=== PATIENT | male | born 1955 | race Caucasian/White ===

== ENCOUNTER 2019-06-30 04:02 | Inpatient (IN) | payer BC ==
[2019-06-30] MEDS ORDERED: SODIUM CHLORIDE 0.9% 1,000 ML IV STA (04:40)
[2019-06-30] MEDS ORDERED: ATROPINE SULFATE 0.1 MG/ML 10ML SYRINGE IV STA (04:40)
--- NOTE | 2019-06-30 04:43 | ED ---
Dizziness HPI - General Stated Complaint: Chest Pain Source: RN notes reviewed, old records reviewed - History of Present Illness Initial Comments: This is a 64-year-old male who presents for evaluation of some chest pain today, feels lightheaded and dizzy special with movement notices heart rate to be severely low at home when he took his blood pressure rate patient has history of atrial fibrillation no recent medication changes. No travel history or sick contacts denying any fevers no drug or alcohol abuse. Patient does relate story of brother who is fraternal twin who also had a recent pacemaker placed secondary to low heart rate. Patient feels near syncopal with movement of feels fine sitting still in his bed MD Complaint: dizziness -: minutes(s) Timing: gradual onset, awoke with symptoms Description: lightheadedness History of Same: No History of Trauma: No Severity: severe Improves With: remaining still Worsens With: nothing Associated Symptoms: chest pain, malaise, syncope (near), weakness - Related Data Allergies Allergy/AdvReac Type Severity Reaction Status Date / Time hydralazine Allergy Rash/Hives Verified 06/30/19 04:46 Review of Systems ROS Statement: Those systems with pertinent positive or pertinent negative responses have been documented in the HPI. ROS Other: All systems not noted in ROS Statement are negative. General Exam General appearance: alert, in no apparent distress, anxious Head exam: Present: atraumatic, normocephalic, normal inspection Eye exam: Present: normal appearance, PERRL, EOMI. Absent: scleral icterus, conjunctival injection, periorbital swelling ENT exam: Present: normal exam, mucous membranes moist Neck exam: Present: normal inspection. Absent: tenderness, meningismus, lymphadenopathy Respiratory exam: Present: normal lung sounds bilaterally. Absent: respiratory distress, wheezes, rales, rhonchi, stridor Cardiovascular Exam: Present: bradycardia (3rd degree heartBlock), normal heart sounds. Absent: systolic murmur, diastolic murmur, rubs, gallop, clicks GI/Abdominal exam: Present: soft, normal bowel sounds. Absent: distended, tenderness, guarding, rebound, rigid Extremities exam: Present: normal inspection, full ROM, normal capillary refill. Absent: tenderness, pedal edema, joint swelling, calf tenderness Back exam: Present: normal inspection Neurological exam: Present: alert, oriented X3, CN II-XII intact Psychiatric exam: Present: normal affect, normal mood Skin exam: Present: warm, dry, intact, normal color. Absent: rash Course Vital Signs 06/30/19 06/30/19 06/30/19 04:10 04:47 05:41 Temperature 98 F Pulse Rate 32 L 27 L Pulse Rate [ 27 L Sitting Apical] Respiratory 22 16 Rate Blood Pressure 162/65 139/55 O2 Sat by Pulse 99 98 Oximetry - Reevaluation(s) Reevaluation #1: 06/30/19 05:43 Medical records reviewed Reevaluation #2: 06/30/19 05:43 Patient has no significant complaints currently feels occasionally lightheaded he did respond atropine transiently - Consultations Consultation #1: Spoke with Dr. Ley regarding patient's heart block heart rate and blood pressure. Patient will place an ICU Consultation #2: Focused Dr. Anglin is okay for admission spoke with Dr. Casiano who is aware of ICU admission EKG Findings - EKG Comments: EKG Findings:: EKG shows 3rd degree heart Block Medical Decision Making - Medical Decision Making 64 male to the ER for evaluation patient of lightheadedness and dizziness patient found be in third-degree heart block, bradycardic in the 20s blood pressure is normal and maintaining, lab values otherwise negative echo was ordered patient will be admitted for cardiac evaluation and treatment, - Lab Data Result diagrams: 06/30/19 04:35 06/30/19 04:35 Lab Results 06/30/19 06/30/19 06/30/19 Range/Units 04:35 04:35 04:35 WBC 5.1 (3.8-10.6) k/uL RBC 4.44 (4.30-5.90) m/uL Hgb 14.4 (13.0-17.5) gm/dL Hct 40.7 (39.0-53.0) % MCV 91.6 (80.0-100.0) fL MCH 32.4 (25.0-35.0) pg MCHC 35.3 (31.0-37.0) g/dL RDW 13.5 (11.5-15.5) % Plt Count 191 (150-450) k/uL Neutrophils % 69 % Lymphocytes % 19 % Monocytes % 6 % Eosinophils % 3 % Basophils % 0 % Neutrophils # 3.5 (1.3-7.7) k/uL Lymphocytes # 1.0 (1.0-4.8) k/uL Monocytes # 0.3 (0-1.0) k/uL Eosinophils # 0.2 (0-0.7) k/uL Basophils # 0.0 (0-0.2) k/uL Sodium 136 L (137-145) mmol/L Potassium 4.6 (3.5-5.1) mmol/L Chloride 105 (98-107) mmol/L Carbon Dioxide 19 L (22-30) mmol/L Anion Gap 12 mmol/L BUN 27 H (9-20) mg/dL Creatinine 0.94 (0.66-1.25) mg/dL Est GFR (CKD-EPI)AfAm >90 (>60 ml/min/1.73 sqM) Est GFR (CKD-EPI)NonAf 86 (>60 ml/min/1.73 sqM) Glucose 188 H (74-99) mg/dL Plasma Lactic Acid Francisco 2.8 H* (0.7-2.0) mmol/L Calcium 9.9 (8.4-10.2) mg/dL Phosphorus 4.2 (2.5-4.5) mg/dL Magnesium 1.7 (1.6-2.3) mg/dL Total Bilirubin 0.6 (0.2-1.3) mg/dL AST 54 (17-59) U/L ALT 48 (4-49) U/L Alkaline Phosphatase 71 (38-126) U/L Troponin I (0.000-0.034) ng/mL NT-Pro-B Natriuret Pep pg/mL Total Protein 7.5 (6.3-8.2) g/dL Albumin 4.4 (3.5-5.0) g/dL TSH 2.950 (0.465-4.680) mIU/L 06/30/19 06/30/19 Range/Units 04:35 04:35 WBC (3.8-10.6) k/uL RBC (4.30-5.90) m/uL Hgb (13.0-17.5) gm/dL Hct (39.0-53.0) % MCV (80.0-100.0) fL MCH (25.0-35.0) pg MCHC (31.0-37.0) g/dL RDW (11.5-15.5) % Plt Count (150-450) k/uL Neutrophils % % Lymphocytes % % Monocytes % % Eosinophils % % Basophils % % Neutrophils # (1.3-7.7) k/uL Lymphocytes # (1.0-4.8) k/uL Monocytes # (0-1.0) k/uL Eosinophils # (0-0.7) k/uL Basophils # (0-0.2) k/uL Sodium (137-145) mmol/L Potassium (3.5-5.1) mmol/L Chloride (98-107) mmol/L Carbon Dioxide (22-30) mmol/L Anion Gap mmol/L BUN (9-20) mg/dL Creatinine (0.66-1.25) mg/dL Est GFR (CKD-EPI)AfAm (>60 ml/min/1.73 sqM) Est GFR (CKD-EPI)NonAf (>60 ml/min/1.73 sqM) Glucose (74-99) mg/dL Plasma Lactic Acid Francisco (0.7-2.0) mmol/L Calcium (8.4-10.2) mg/dL Phosphorus (2.5-4.5) mg/dL Magnesium (1.6-2.3) mg/dL Total Bilirubin (0.2-1.3) mg/dL AST (17-59) U/L ALT (4-49) U/L Alkaline Phosphatase (38-126) U/L Troponin I <0.012 (0.000-0.034) ng/mL NT-Pro-B Natriuret Pep 111 pg/mL Total Protein (6.3-8.2) g/dL Albumin (3.5-5.0) g/dL TSH (0.465-4.680) mIU/L Critical Care Time Critical Care Time: Yes Total Critical Care Time: 31 Disposition Clinical Impression: Atypical chest pain, Bradycardia, Third degree heart block Disposition: ADMITTED IP TO THIS HOSP Condition: Serious Is patient prescribed a controlled substance at d/c from ED?: No Referrals: [facility] [Primary Care Provider] - 1-2 days
[2019-06-30 05:01] LABS: Basophils % (A) 0 %; Eosinophils # (A) 0.2 k/uL (0-0.7); Eosinophils % (A) 3 %; HCT 40.7 % (39.0-53.0); HGB 14.4 gm/dL (13.0-17.5); Lymphocytes % (A) 19 %; MCH 32.4 pg (25.0-35.0); MCHC 35.3 g/dL (31.0-37.0); MCV 91.6 fL (80.0-100.0); Mean Platelet Volume 8.9; Monocytes # (A) 0.3 k/uL (0-1.0); Monocytes % (A) 6 %; Neutrophils # (A) 3.5 k/uL (1.3-7.7); Neutrophils % (A) 69 %; Platelet Count 191 k/uL (150-450); RBC 4.44 m/uL (4.30-5.90); RDW 13.5 % (11.5-15.5); WBC 5.1 k/uL (3.8-10.6)
[2019-06-30 05:05] LABS: ALT 48 U/L (4-49); AST 54 U/L (17-59); African American GFR (CKD) >90 (>60 ml/min/1.73 sqM); Albumin 4.4 g/dL (3.5-5.0); Alkaline Phosphatase 71 U/L (38-126); Anion Gap 12 mmol/L; Blood Urea Nitrogen 27 mg/dL (9-20); Calcium 9.9 mg/dL (8.4-10.2); Carbon Dioxide 19 mmol/L (22-30); Chloride 105 mmol/L (98-107); Glucose 188 mg/dL (74-99); Magnesium 1.7 mg/dL (1.6-2.3); Non-African American GFR(CKD) 86 (>60 ml/min/1.73 sqM); Phosphorus 4.2 mg/dL (2.5-4.5); Potassium 4.6 mmol/L (3.5-5.1); Sodium 136 mmol/L (137-145); Total Bilirubin 0.6 mg/dL (0.2-1.3); Total Protein 7.5 g/dL (6.3-8.2)
[2019-06-30] MEDS ORDERED: NITROGLYCERIN SL TABS 0.4 MG TAB SUBLINGUAL PRN (05:10)
[2019-06-30] MEDS ORDERED: ASPIRIN 81 MG PO STA (05:10)
[2019-06-30 05:35] LABS: INR 1.1 (<1.2); Partial Thromboplastin Time 41.9 sec (22.0-30.0); Prothrombin Time 11.6 sec (9.0-12.0)
--- NOTE | 2019-06-30 06:25 | XR ---
EXAM: XR Chest, 1 View CLINICAL HISTORY: ITS.REASON XR Reason: sob TECHNIQUE: Frontal view of the chest. COMPARISON: No relevant prior studies available. FINDINGS: Lungs: Left basilar atelectasis. Left lung granulomas. Pleural space: Unremarkable. No pneumothorax. Heart: Unremarkable. No cardiomegaly. Mediastinum: Unremarkable. Bones/joints: Unremarkable. IMPRESSION: Left basilar atelectasis. Left lung granulomas.
[2019-06-30] MEDS ORDERED: IV FLUID CONTINUATION 1,000 ML IV ONE ×2 (07:00→09:00)
[2019-06-30] MEDS ORDERED: MIDAZOLAM 2 MG/2 ML VIAL IV ONE ×2 (07:01→09:53)
[2019-06-30] MEDS ORDERED: fentaNYL (PF) 50 MCG/ML 2 ML AMP IV ONE ×2 (07:01→09:53)
[2019-06-30] MEDS ORDERED: LIDOCAINE 1% INJ 10MG/ML (20 ML MDV) SQ ONE ×3 (07:08→09:53)
[2019-06-30] MEDS ORDERED: ceFAZolin 1,000 MG in SODIUM CHLORIDE 0.9% IRRIGATIO 250 ML IRRIGATION ONE (07:25)
[2019-06-30] MEDS ORDERED: SODIUM CHLORIDE 0.9% 500 ML 500 ML IV ONE (07:26)
[2019-06-30] MEDS ORDERED: SODIUM CHLORIDE 0.9% 1,000 ML IV SCH (07:30)
[2019-06-30] MEDS ORDERED: SODIUM CHLORIDE 0.9% 250 ML IV ONE (07:40)
[2019-06-30] MEDS ORDERED: IOPAMIDOL-250 50ML BTL IV ONE (09:10)
[2019-06-30] MEDS ORDERED: ALPRAZolam 0.5 MG TAB PO PRN (10:06)
[2019-06-30] MEDS ORDERED: ENALAPRILAT 1.25 MG/ML 1 ML VIAL IV ONE (10:52)
[2019-06-30] MEDS ORDERED: ACETAMINOPHEN TAB 325 MG TAB PO PRN (11:08)
--- NOTE | 2019-06-30 11:15 | P.PCN ---
Date of Procedure: 06/30/19 Preoperative Diagnosis: Complete heart block Postoperative Diagnosis: The same Procedure(s) Performed: Temporary pacemaker insertion Description of Procedure: This 64-year-old gentleman was admitted to the emergency room with complete heart block with severe bradycardia and symptoms of dizziness. Patient EKG showed evidence of complete heart block and left bundle-branch block. Patient is advised to have temporary pacemaker. Procedure: Patient was brought to the lab in a fasting state. He was prepped and draped in the usual fashion. The right groin is infiltrated with lidocaine. Right femoral vein was entered using Seldinger technique and a 6-Irish sheath was left in place. A temporary pacemaker wire was advanced under fluoroscopy and was placed near the right ventricular apical region. Satisfactory thresholds were obtained. The pacemaker is set at an output of 3 and heart rate of 50. Patient tolerated the procedure well. Final impression: #1. Successful implantation of temporary pacemaker under fluoroscopy. Plan: We will proceed with permanent pacemaker implantation within 24 hours
--- NOTE | 2019-06-30 11:21 | P.PCN ---
Date of Procedure: 06/30/19 Preoperative Diagnosis: Complete heart block Postoperative Diagnosis: Successful implantation of dual-chamber pacemaker Procedure(s) Performed: Permanent pacemaker implantation, dual-chamber, axillary venography Description of Procedure: HISTORY: This is a 64-year-old gentleman with history of hypertension, insulin- dependent diabetes mellitus and also persistent atrial fibrillation, who was admitted to the hospital with dizziness and evidence of complete A-V block with underlying left bundle-branch block pattern. Patient had a temporary pacemaker already. He is advised to have permanent pacemaker insertion. CONSENT:I have discussed the risks, benefits and alternative therapies for the above-mentioned procedure and for both sedation/analgesia as well as necessary blood product administration, if indicated, as they pertain to this patient. The patient has indicated understanding and acceptance of the risks and procedures discussed. PROCEDURE: Patient was brought to the lab in a fasting state. Patient was prepped and draped in the usual fashion. Patient was given IV sedation with fentanyl and Versed. The skin below the left clavicle was infiltrated with lidocaine. An incision was made parallel to deltopectoral groove was deepened until the pectoral fascia was exposed. A pocket was created by blunt dissection and cautery. Axillary venography was performed to delineate the course of the axillary vein. 2 sticks were performed into extrathoracic portion of the axillary vein and 2 sheaths were advanced over the guidewires and left in subclavian vein. Conscious Sedation: Versed 0.5mg Fentanyl 25 g Duration 68minutes LEADS: ATRIAL: This is manufactured by [employer]. Model number is 5076-52. The serial number is [id number] VENTRICULAR: This is manufactured by [employer]. Model number is 5076-58. The serial number is [id number] The ventricular lead is maneuvered l with help of a straight and curved stylets into the left ventricle apical region. Satisfactory position was obtained and threshold measurements were made. The atrial lead was then maneuvered into the right atrial appendage. And thresholds were obtained. THRESHOLDS: ATRIUM: The minimal pacing threshold is 0.75 V at a pulse width of 0.4 V, impedance of 513. The P-wave is 1.9 VENTRICLE: The minimum patient threshold is less than 1 at pulse width of 0.4 with impedance of 969. R-wave: Could not be measured because of significant bradycardia The leads and pulse generator remained in the pocket after it was washed with antibiotics. Pocket was closed in the usual fashion. The fascia was closed with 2-0 Prolene ,the subcutaneous tissue was closed with 3-0 Prolene and the skin was closed with 4-0 Prolene. PROGRAMMING: MODE: DDDR RATE: 60 to 130 OUTPUT: Atrium : 3.5 Ventricle: 3.5 FINAL IMPRESSION:. #1 axillary venography #2. Insertion of permanent pacemaker COMPLICATIONS:. None PLAN:. Patient will be monitored on the telemetry unit. Prophylactic antibiotics to be continued. Chest x-ray in the morning
--- NOTE | 2019-06-30 11:41 | ECHOF ---
Referral Reason:cindy MEASUREMENTS -------- HEIGHT: 177.8 cm WEIGHT: 108.9 kg BP: 170/91 RVIDd: 3.9 cm (< 3.3) IVSd: 1.7 cm (0.6 - 1.1) LVIDd: 4.3 cm (3.9 - 5.3) LVPWd: 1.6 cm (0.6 - 1.1) IVSs: 1.7 cm LVIDs: 3.1 cm LVPWs: 2.1 cm LA Diam: 3.9 cm (2.7 - 3.8) Ao Diam: 2.9 cm (2.0 - 3.7) AV Cusp: 2.1 cm (1.5 - 2.6) MV EXCURSION: 18.069 mm (> 18.000) MV EF SLOPE: 58 mm/s (70 - 150) EPSS: 0.7 cm MV E Andrew: 0.87 m/s MV DecT: 273 ms MV A Andrew: 0.75 m/s MV E/A Ratio: 1.17 RAP: 5.00 mmHg RVSP: 30.23 mmHg FINDINGS -------- Resting bradycardia (HR<60bpm). This was a technically adequate study. The left ventricular size is normal. There is moderate concentric left ventricular hypertrophy. O verall left ventricular systolic function is low-normal with, an EF between 50 - 55 %. The right ventricle is moderately enlarged. Normal LA size by volume 22+/-6 ml/m2. The right atrium is normal in size. Interatrial and interventricular septum intact. There is mild aortic valve sclerosis. Trace to mild aortic regurgitation. The mitral valve leaflets are mildly thickened. Mild mitral annular calcification present. Mild tricuspid regurgitation present. Right ventricular systolic pressure is normal at < 35 mmHg. Trace/mild (physiologic) pulmonic regurgitation. The aortic root size is normal. Normal inferior vena cava with normal inspiratory collapse consistent with estimated right atrial pre ssure of 5 mmHg. There is no pericardial effusion. CONCLUSIONS -------- 1. Resting bradycardia (HR<60bpm). 2. This was a technically adequate study. 3. The left ventricular size is normal. 4. There is moderate concentric left ventricular hypertrophy. 5. Overall left ventricular systolic function is low-normal with, an EF between 50 - 55 %. 6. The right ventricle is moderately enlarged. 7. Normal LA size by volume 22+/-6 ml/m2. 8. The right atrium is normal in size. 9. Interatrial and interventricular septum intact. 10. There is mild aortic valve sclerosis. 11. Trace to mild aortic regurgitation. 12. The mitral valve leaflets are mildly thickened. 13. Mild mitral annular calcification present. 14. Mild tricuspid regurgitation present. 15. Right ventricular systolic pressure is normal at < 35 mmHg. 16. Trace/mild (physiologic) pulmonic regurgitation. 17. The aortic root size is normal. 18. Normal inferior vena cava with normal inspiratory collapse consistent with estimated right atrial pressure of 5 mmHg. 19. There is no pericardial effusion. APPLICATION DESIGN ENGINEER: Roseann Braden RDCS
--- NOTE | 2019-06-30 12:50 | P.HPIM ---
History of Present Illness 64-year-old pleasant male came in with complaints of severe dizziness found to be in third-degree heart block. Patient denied any fever chills nausea vomiting abdominal pain dysuria. Patient underwent temporary pacemaker placement followed by a permanent pacemaker now. Patient has history of atrial fibrillation on Xeralto and patient is not on any rate control medications at this time. Patient felt like his gone up lose consciousness denied any significant chest pain Review of Systems REVIEW OF SYSTEMS: CONSTITUTIONAL: No fever, no malaise, no fatigue. HEENT: No recent visual problems or hearing problems. Denied any sore throat. CARDIOVASCULAR: As mentioned in HPI PULMONARY: No shortness of breath, no cough, no hemoptysis. GASTROINTESTINAL: No diarrhea, no nausea, no vomiting, no abdominal pain. NEUROLOGICAL: No headaches, no weakness, no numbness. HEMATOLOGICAL: Denies any bleeding or petechiae. GENITOURINARY: Denies any burning micturition, frequency, or urgency. MUSCULOSKELETAL/RHEUMATOLOGICAL: Denies any joint pain, swelling, or any muscle pain. ENDOCRINE: Denies any polyuria or polydipsia. The rest of the 14-point review of systems is negative. Past Medical History Past Medical History: Atrial Fibrillation, Diabetes Mellitus, Hypertension Additional Past Medical History / Comment(s): 3rd degree heart block. History of Any Multi-Drug Resistant Organisms: None Reported Past Surgical History: Adenoidectomy, Hernia Repair, Pacemaker, Tonsillectomy Past Anesthesia/Blood Transfusion Reactions: No Reported Reaction Type of Cardiac Device: Permanent Pacemaker Device Placement Date:: 06/30/2019 Past Psychological History: No Psychological Hx Reported Smoking Status: Former smoker Past Alcohol Use History: Daily Past Drug Use History: None Reported Medications and Allergies Home Medications Medication Instructions Recorded Confirmed Type ALPRAZolam [Xanax] 1 mg PO TID PRN 06/30/19 06/30/19 History Atorvastatin [Lipitor] 20 mg PO HS 06/30/19 06/30/19 History Fluticasone Nasal [place] [Flonase 1 spray EA NOSTRIL BID 06/30/19 06/30/19 History Nasal [place]] Insulin Aspart [NovoLOG Flexpen] 4 units SQ QID 06/30/19 06/30/19 History Insulin Glargine [Lantus] 50 units SQ DAILY 06/30/19 06/30/19 History Losartan Potassium [Cozaar] 100 mg PO DAILY 06/30/19 06/30/19 History Omeprazole [PriLOSEC] 20 mg PO AC-[id number] 06/30/19 06/30/19 History Rivaroxaban [Xarelto] 20 mg PO DAILY 06/30/19 06/30/19 History Spironolactone [Aldactone] 25 mg PO DAILY 06/30/19 06/30/19 History amLODIPine [Norvasc] 10 mg PO DAILY 06/30/19 06/30/19 History metFORMIN HCL 1,000 mg PO BID 06/30/19 06/30/19 History Allergies Allergy/AdvReac Type Severity Reaction Status Date / Time hydralazine Allergy Rash/Hives Verified 06/30/19 04:46 Physical Exam Vitals: Vital Signs Temp Pulse Pulse Pulse Resp BP BP 06/30/19 12:25 70 18 136/66 06/30/19 12:10 60 16 159/69 06/30/19 11:55 60 16 145/75 06/30/19 11:40 98.6 F 60 16 141/73 06/30/19 08:20 50 L 16 151/72 06/30/19 07:37 50 L 16 166/78 06/30/19 06:00 98.0 F 28 L 16 170/91 06/30/19 05:41 27 L 16 139/55 06/30/19 04:47 27 L 06/30/19 04:10 98 F 32 L 22 162/65 Pulse Ox 06/30/19 12:25 95 06/30/19 12:10 98 06/30/19 11:55 96 06/30/19 11:40 97 06/30/19 08:20 97 06/30/19 07:37 98 06/30/19 06:00 99 06/30/19 05:41 98 06/30/19 04:47 06/30/19 04:10 99 Intake and Output 06/29/19 06/30/19 06/30/19 22:59 06:59 14:59 Intake Total 300 Output Total 1125 Balance -825 Intake: IV 300 Output: Urine 1125 Other: # Voids 1 Weight 108.862 kg PHYSICAL EXAMINATION: GENERAL: The patient is alert and oriented x3, not in any acute distress. Well developed, well nourished. HEENT: Pupils are round and equally reacting to light. EOMI. No scleral icterus. No conjunctival pallor. Normocephalic, atraumatic. No pharyngeal erythema. No thyromegaly. CARDIOVASCULAR: S1 and S2 present. No murmurs, rubs, or gallops. PULMONARY: Chest is clear to auscultation, no wheezing or crackles. ABDOMEN: Soft, nontender, nondistended, normoactive bowel sounds. No palpable organomegaly. MUSCULOSKELETAL: No joint swelling or deformity. EXTREMITIES: No cyanosis, clubbing, or pedal edema. NEUROLOGICAL: Gross neurological examination did not reveal any focal deficits. SKIN: No rashes. Results CBC & Chem 7: 06/30/19 04:35 06/30/19 04:35 Labs: Abnormal Lab Results - Last 24 Hours (Table) 06/30/19 06/30/19 06/30/19 Range/Units 04:35 04:35 04:35 APTT 41.9 H (22.0-30.0) sec Sodium 136 L (137-145) mmol/L Carbon Dioxide 19 L (22-30) mmol/L BUN 27 H (9-20) mg/dL Glucose 188 H (74-99) mg/dL Plasma Lactic Acid Francisco 2.8 H* (0.7-2.0) mmol/L Thrombosis Risk Factor Assmnt - Choose All That Apply Any of the Below Risk Factors Present?: Yes Each Factor Represents 1 point: History of prior major surgery (<1month), Medical pt on bed rest, Obesity (BMI >25) Other Risk Factors: Yes Each Risk Factor Represents 2 Points: Age 61-74 years Other congenital or acquired thrombophilia - If yes, enter type in comment: No Thrombosis Risk Factor Assessment Total Risk Factor Score: 5 Thrombosis Risk Factor Assessment Level: High Risk Assessment and Plan Plan: -Lightheadedness near syncopal episode secondary to third-degree heart block patient is status post pacemaker placement -History of atrial fibrillation presently rate controlled continue with anti- correlation as mentioned above -Type 2 diabetes mellitus: Patient will be continued on his home regimen except for metformin will add sliding scale insulin depending on his insulin requirements will titrate his medications -Hypertension -Obesity
--- NOTE | 2019-06-30 13:48 | P.CRDCN ---
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 Over the last several days, patient has been experiencing dizzy spells as if he would pass out. He also had one bout of chest pain lasting about an hour. At the time of my examination patient is complaining of mostly lightheadedness but no complaints of chest pain which did not recur. His EKG showed evidence of sinus rhythm with complete AV dissociation with underlying left bundle branch block. His electoral lites are within normal limits. He denied again nausea, vomiting, sweating, shortness of breath. An echocardiogram done, bedside, showed evidence of preserved LV function without any significant valvular abnormalities. Patient is advised to have a temporary pacemaker followed by permanent pacemaker. Review of Systems As per the chart Past Medical History Past Medical History: Atrial Fibrillation, Diabetes Mellitus, Hypertension Additional Past Medical History / Comment(s): 3rd degree heart block. History of Any Multi-Drug Resistant Organisms: None Reported Past Surgical History: Adenoidectomy, Hernia Repair, Pacemaker, Tonsillectomy Past Anesthesia/Blood Transfusion Reactions: No Reported Reaction Type of Cardiac Device: Permanent Pacemaker Device Placement Date:: 06/30/2019 Past Psychological History: No Psychological Hx Reported Smoking Status: Former smoker Past Alcohol Use History: Daily Past Drug Use History: None Reported Medications and Allergies Home Medications Medication Instructions Recorded Confirmed Type ALPRAZolam [Xanax] 1 mg PO TID PRN 06/30/19 06/30/19 History Atorvastatin [Lipitor] 20 mg PO HS 06/30/19 06/30/19 History Fluticasone Nasal [place] [Flonase 1 spray EA NOSTRIL BID 06/30/19 06/30/19 History Nasal [place]] Insulin Aspart [NovoLOG Flexpen] 4 units SQ QID 06/30/19 06/30/19 History Insulin Glargine [Lantus] 50 units SQ DAILY 06/30/19 06/30/19 History Losartan Potassium [Cozaar] 100 mg PO DAILY 06/30/19 06/30/19 History Omeprazole [PriLOSEC] 20 mg PO AC-BRKFST 06/30/19 06/30/19 History Rivaroxaban [Xarelto] 20 mg PO DAILY 06/30/19 06/30/19 History Spironolactone [Aldactone] 25 mg PO DAILY 06/30/19 06/30/19 History amLODIPine [Norvasc] 10 mg PO DAILY 06/30/19 06/30/19 History metFORMIN HCL 1,000 mg PO BID 06/30/19 06/30/19 History Allergies Allergy/AdvReac Type Severity Reaction Status Date / Time hydralazine Allergy Rash/Hives Verified 06/30/19 13:40 Physical Exam Vitals: Vital Signs Temp Pulse Pulse Pulse Resp BP BP 06/30/19 13:40 61 18 158/75 06/30/19 13:10 69 18 138/69 06/30/19 12:40 66 18 146/66 06/30/19 12:25 70 18 136/66 06/30/19 12:10 60 16 159/69 06/30/19 11:55 60 16 145/75 06/30/19 11:40 98.6 F 60 16 141/73 06/30/19 08:20 50 L 16 151/72 06/30/19 07:37 50 L 16 166/78 06/30/19 06:00 98.0 F 28 L 16 170/91 06/30/19 05:41 27 L 16 139/55 06/30/19 04:47 27 L 06/30/19 04:10 98 F 32 L 22 162/65 Pulse Ox 06/30/19 13:40 96 06/30/19 13:10 98 06/30/19 12:40 97 06/30/19 12:25 95 06/30/19 12:10 98 06/30/19 11:55 96 06/30/19 11:40 97 06/30/19 08:20 97 06/30/19 07:37 98 06/30/19 06:00 99 06/30/19 05:41 98 06/30/19 04:47 06/30/19 04:10 99 Intake and Output 06/29/19 06/30/19 06/30/19 22:59 06:59 14:59 Intake Total 300 Output Total 1625 Balance -1325 Intake: IV 300 Output: Urine 1625 Other: # Voids 1 Weight 108.862 kg GENERAL EXAM: Patient is alert and oriented and doesn't appear to be in any acute distress HEENT: Normocephalic. Normal reaction of pupils, equal size, normal range of extraocular motion. No erythema or exudates in the throat. NECK: No masses, no nuchal rigidity. CHEST: No chest wall deformity. LUNGS: Equal air entry with no crackles or wheeze. HEART: S1 and S2 normal . Slow rhythm ABDOMEN: No hepatosplenomegaly, normal bowel sounds, no guarding or rigidity. SKIN: No rashes CENTRAL NERVOUS SYSTEM: No focal deficits. EXTREMITIES: No cyanosis, clubbing or edema. Results 06/30/19 04:35 06/30/19 04:35 Cardiac Enzymes 06/30/19 06/30/19 06/30/19 Range/Units 04:35 04:35 11:45 AST 54 (17-59) U/L Troponin I <0.012 0.054 H* (0.000-0.034) ng/mL Coagulation 06/30/19 Range/Units 04:35 PT 11.6 (9.0-12.0) sec APTT 41.9 H (22.0-30.0) sec CBC 06/30/19 Range/Units 04:35 WBC 5.1 (3.8-10.6) k/uL RBC 4.44 (4.30-5.90) m/uL Hgb 14.4 (13.0-17.5) gm/dL Hct 40.7 (39.0-53.0) % Plt Count 191 (150-450) k/uL Comprehensive Metabolic Panel 06/30/19 Range/Units 04:35 Sodium 136 L (137-145) mmol/L Potassium 4.6 (3.5-5.1) mmol/L Chloride 105 (98-107) mmol/L Carbon Dioxide 19 L (22-30) mmol/L BUN 27 H (9-20) mg/dL Creatinine 0.94 (0.66-1.25) mg/dL Glucose 188 H (74-99) mg/dL Calcium 9.9 (8.4-10.2) mg/dL AST 54 (17-59) U/L ALT 48 (4-49) U/L Alkaline Phosphatase 71 (38-126) U/L Total Protein 7.5 (6.3-8.2) g/dL Albumin 4.4 (3.5-5.0) g/dL Current Medications Generic Name Dose Route Start Last Admin Trade Name Freq PRN Reason Stop Dose Admin Acetaminophen 650 mg 06/30/19 07:23 Tylenol Tab PO Q6HR PRN Mild Pain Alprazolam 0.5 mg 06/30/19 10:06 Xanax PO TID PRN Anxiety Amlodipine Besylate 10 mg 07/01/19 09:00 Norvasc PO DAILY [facility]1983 Atorvastatin Calcium 20 mg 06/30/19 21:00 Lipitor PO HS GIO Fluticasone Propionate 1 spray 06/30/19 21:00 Flonase Nasal [place] EA NOSTRIL BID GIO Sodium Chloride 1,000 mls @ 20 mls/hr 06/30/19 07:30 Saline 0.9% IV .Q24H GIO Sodium Chloride 1,000 mls @ 50 mls/hr 06/30/19 07:30 Saline 0.9% IV .Q20H GIO Cefazolin Sodium 2 gm/ Sodium 50 mls @ 100 mls/hr 06/30/19 16:00 Chloride IVPB 07/01/19 10:29 Q6H [facility]1983 Insulin Detemir 40 unit 07/01/19 09:00 Levemir SQ DAILY [facility]1983 Losartan Potassium 100 mg 07/01/19 09:00 Cozaar PO DAILY [facility]1983 Nitroglycerin 0.4 mg 06/30/19 05:10 Nitrostat SUBLINGUAL Q5M PRN Chest Pain Pantoprazole Sodium 40 mg 07/01/19 07:30 Protonix PO AC-BRKFST [facility]1983 Sodium Chloride 10 ml 06/30/19 09:00 06/30/19 13:22 Saline Flush IV Not Given Q12HR GIO Sodium Chloride 10 ml 06/30/19 21:00 Saline Flush IV Q12HR GIO Spironolactone 25 mg 07/01/19 09:00 Aldactone PO DAILY GIO Intake and Output 06/29/19 06/30/19 06/30/19 22:59 06:59 14:59 Intake Total 300 Output Total 1625 Balance -1325 Intake: IV 300 Output: Urine 1625 Other: # Voids 1 Weight 108.862 kg 06/30/19 04:35 06/30/19 04:35 EKG Interpretations (text) Sinus rhythm with complete AV dissociation and underlying left bundle-branch block Assessment and Plan (1) Essential hypertension Current Visit: Yes Status: Acute Code(s): I10 - ESSENTIAL (PRIMARY) HYPERTENSION SNOMED Code(s): 82615017 (2) Atypical chest pain Current Visit: Yes Status: Acute Code(s): R07.89 - OTHER CHEST PAIN SNOMED Code(s): 761575637 (3) Bradycardia Current Visit: Yes Status: Acute Code(s): R00.1 - BRADYCARDIA, UNSPECIFIED SNOMED Code(s): 93516006 (4) Third degree heart block Current Visit: Yes Status: Acute Code(s): I44.2 - ATRIOVENTRICULAR BLOCK, COMPLETE SNOMED Code(s): 46370429 (5) Insulin dependent diabetes mellitus Current Visit: Yes Status: Acute Code(s): QJW0965 - SNOMED Code(s): 85306827 (6) History of atrial fibrillation Current Visit: Yes Status: Acute Code(s): Z86.79 - PERSONAL HISTORY OF OTHER DISEASES OF THE CIRCULATORY SYSTEM SNOMED Code(s): 778819254 (7) Left bundle branch block Current Visit: Yes Status: Acute Code(s): I44.7 - LEFT BUNDLE-BRANCH BLOCK, UNSPECIFIED SNOMED Code(s): 67072407 Plan: Patient is advised to have temporary pacemaker followed by permanent pacemaker. Further recommendation will depend upon the clinical course
[2019-06-30] MEDS: ACETAMINOPHEN TAB 325 MG TAB PO PRN (14:28)
[2019-06-30] MEDS: SODIUM CHLORIDE 0.9% 1,000 ML IV SCH ×2 (15:55)
[2019-06-30 16:33] LABS: Glucose,Whole Blood 113 mg/dL (75-99)
[2019-06-30] MEDS: INSULIN ASPART (NovoLOG) 100 UNIT/ML VIAL SQ SCH ×2 (16:38→20:40)
[2019-06-30] MEDS: FLUTICASONE 50MCG/SPRAY NASAL 16GM EA NOSTRIL SCH (20:40)
[2019-06-30 20:45] LABS: Glucose,Whole Blood 165 mg/dL (75-99)
[2019-06-30] MEDS ORDERED: amLODIPine 10 MG TAB PO SCH (21:00)
[2019-06-30] MEDS ORDERED: ATORVASTATIN 20 MG TAB PO SCH (21:00)
[2019-06-30] MEDS: HYDROcodone/APAP 7.5-325MG 1 EACH TAB PO PRN (22:26)
[2019-07-01 03:36] LABS: Cholesterol 117 mg/dL (<200); HDL Cholesterol 23 mg/dL (40-60); LDL Cholesterol,Calculated 31 mg/dL (0-99); Triglycerides 313 mg/dL (<150)
[2019-07-01] MEDS: SODIUM CHLORIDE 0.9% 1,000 ML IV SCH ×2 (03:42→03:47)
[2019-07-01] MEDS: INSULIN ASPART (NovoLOG) 100 UNIT/ML VIAL SQ SCH ×3 (06:07→12:05)
[2019-07-01] MEDS: ACETAMINOPHEN TAB 325 MG TAB PO PRN (06:08)
[2019-07-01 06:09] LABS: Glucose,Whole Blood 166 mg/dL (75-99)
--- NOTE | 2019-07-01 07:09 | XR ---
EXAMINATION TYPE: XR chest 2V DATE OF EXAM: 07/01/2019 COMPARISON: 06/30/2019 HISTORY: Lead placement check TECHNIQUE: Frontal and lateral views of the chest are obtained. FINDINGS: Dual lead left-sided cardiac device is seen inserted in the interim with single atrial rebeca d and single ventricular lead. No postprocedural pneumothorax. Mildly enlarged cardiac mediastinal si lhouette. Right infrahilar strand-like atelectasis. No new focal consolidation, pleural effusion or p ulmonary vascular congestion. IMPRESSION: Newly inserted dual lead left-sided cardiac device with minimal right infrahilar new ate lectasis.
[2019-07-01] MEDS ORDERED: PANTOPRAZOLE 40 MG TABLET PO SCH (07:30)
[2019-07-01] MEDS: FLUTICASONE 50MCG/SPRAY NASAL 16GM EA NOSTRIL SCH (08:23)
[2019-07-01] MEDS ORDERED: INSULIN DETEMIR (LEVEMIR) 100 UNIT/ML SYR SQ SCH ×2 (09:00→21:00)
[2019-07-01] MEDS ORDERED: ASPIRIN 325 MG TAB PO SCH (09:00)
[2019-07-01] MEDS ORDERED: SPIRONOLACTONE 25 MG TAB PO SCH (09:00)
[2019-07-01] MEDS ORDERED: amLODIPine 10 MG TAB PO SCH (09:00)
[2019-07-01] MEDS ORDERED: LOSARTAN 50 MG TAB PO SCH (09:00)
[2019-07-01] MEDS: HYDROcodone/APAP 7.5-325MG 1 EACH TAB PO PRN (10:04)
[2019-07-01 11:38] LABS: Glucose,Whole Blood 206 mg/dL (75-99)
--- NOTE | 2019-07-01 12:46 | P.PN ---
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 His EKG on presentation here showed complete AV disassociation with underlying left bundle-branch block, for this reason patient was taken for temporary pacemaker placement with subsequent permanent pacemaker implantation by Dr. Ley. His device was interrogated this morning and is functioning appropriately. The chest x-ray did not reveal any evidence of a pneumothorax. Blood pressure 130/70 with a heart rate of 60, 97% on room air. The patient was noted to have some mild abnormality in troponin yesterday, initial troponin 0.012, Subsequent troponin 0.05 and 0.06. The abnormality in troponin could be secondary to the significant bradycardia on admission here, however we will repeat one troponin this morning, if it's stable the patient should be able to be discharged home later today. Objective - Vital Signs Vital signs: Vital Signs Temp 97.7 F 07/01/19 03:40 Pulse 60 07/01/19 03:40 Resp 18 07/01/19 03:40 BP 130/71 07/01/19 03:40 Pulse Ox 97 07/01/19 03:40 Intake & Output 06/30/19 07/01/19 07/01/19 18:59 06:59 18:59 Intake Total 300 50 480 Output Total 1625 Balance -1325 50 480 Weight 107.9 kg Intake: IV 300 Intake, IV Titration 50 Amount ceFAZolin 2 gm In Sodium 50 Chloride 0.9% 50 ml @ 100 mls/hr IVPB Q6H [facility] Rx#: [id number] Oral 480 Output: Urine 1625 Other: Voiding Method Toilet Toilet # Voids 1 1 2 - Exam PHYSICAL EXAMINATION: GENERAL: HEENT: Head is atraumatic, normocephalic. Pupils equal, round. Sclera anicteri c. Conjunctiva are clear. Mucous membranes of the mouth are moist. Neck is supple. There is no elevated jugular venous pressure. No carotid bruit is heard. HEART EXAMINATION: 64-year-old gentleman in no acute distress at the time of examination CHEST EXAMINATION: Lungs are clear to auscultation and precussion. No chest wall tenderness is noted on palpation or with deep breathing. Site of pacemaker implantation clean and dry, there is some reddened and irritated skin where the tape was prior to the dressing removal, no hematoma. ABDOMEN: Soft, nontender. Bowel sounds are heard. No organomegaly noted. EXTREMITIES: 2+ peripheral pulses with no evidence of peripheral edema and no calf tenderness noted. NEUROLOGIC patient is awake, alert and oriented X3 . - Labs CBC & Chem 7: 06/30/19 04:35 06/30/19 04:35 Labs: Abnormal Lab Results - Last 24 Hours (Table) 06/30/19 06/30/19 06/30/19 Range/Units 04:35 11:45 16:09 POC Glucose (mg/dL) (75-99) mg/dL Troponin I 0.054 H* 0.061 H* (0.000-0.034) ng/mL Triglycerides 313 H (<150) mg/dL HDL Cholesterol 23 L (40-60) mg/dL 06/30/19 06/30/19 07/01/19 Range/Units 16:31 20:36 06:03 POC Glucose (mg/dL) 113 H 165 H 166 H (75-99) mg/dL Troponin I (0.000-0.034) ng/mL Triglycerides (<150) mg/dL HDL Cholesterol (40-60) mg/dL 07/01/19 Range/Units 11:37 POC Glucose (mg/dL) 206 H (75-99) mg/dL Troponin I (0.000-0.034) ng/mL Triglycerides (<150) mg/dL HDL Cholesterol (40-60) mg/dL Assessment and Plan Plan: Assessment and plan #1 status post implantation of a permanent pacemaker for underlying complete heart block #2 hypertension #3 episode of chest discomfort with mild abnormality in troponin noted. #4 diabetes #5 persistent atrial fibrillation #6 hyperlipidemia Plan We will obtain a subsequent troponin, if it is remaining stable, patient should be able to be discharged home, the troponin abnormality may be secondary to the complete heart block, however if the troponin level significantly rises, we may need to delay the discharge and evaluate the patient further for coronary artery disease. Patient's xarelto will be resumed on Thursday. Further recommendations to follow. DNP note has been reviewed, I agree with a documented findings and plan of care. Patient was seen and examined.
--- NOTE | 2019-07-01 14:27 | P.DS ---
Providers Date of admission: 06/30/19 05:10 Expected date of discharge: 07/01/19 Attending physician: Dang Anglin Consults: 06/30/19 05:10 Consult Physician Routine Consulting Provider: Shoaib Nogueira Consult Reason/Comments: heartBlock Do you want consulting provider notified?: Yes Primary care physician: [facility] Hospital Course: Final diagnosis -Lightheadedness near syncopal episode secondary to third-degree heart block patient is status post pacemaker placement -History of atrial fibrillation presently rate controlled -Type 2 diabetes mellitus -Hypertension -Obesity Discharge disposition Patient is being discharged in a stable condition with guarded prognosis to home. Patient will follow-up with cardiology Dr. Ley in the outpatient setting in 1 week. Patient instructed to resume Xarelto on Thursday. Patient will follow-up at the [facility] upon discharge. Total time taken is 35 minutes. History of present illness This is a 64-year-old male who was recently admitted with complaints of severe dizziness and was found to be in third-degree heart block. Patient underwent pacemaker placement with cardiology. Patient does have a history of atrial fibrillation and instructed by cardiology to resume Xarelto starting Thursday. Currently patient has no reports of chest pain, shortness of breath, or palpitations. Patient denies any recent feelings of dizziness or lightheadedness. Patient does have some upper left chest wall discomfort to be expected of the pacemaker placement. Will be following up with cardiology in the outpatient setting in 1 week. Patient will be discharged today. On exam vital signs are stable. Temp is 98.1F, pulse is 68, respirations are 14, blood pressure is 150/82, oxygen saturation is 98% on room air. Cardio S1, S2 are present. Respiratory shows clear to auscultation. Abdomen is soft and nontender. Nervous system shows no focal deficits. Please refer to medication reconciliation sheet for a list of medications. Patient Condition at Discharge: Stable Plan - Discharge Summary Discharge Rx Participant: Yes New Discharge Prescriptions: New Atorvastatin [Lipitor] 20 mg PO HS #3 tab Continue Spironolactone [Aldactone] 25 mg PO DAILY Omeprazole [PriLOSEC] 20 mg PO AC-BRKFST Losartan Potassium [Cozaar] 100 mg PO DAILY Insulin Glargine [Lantus] 50 units SQ DAILY Insulin Aspart [NovoLOG Flexpen] 4 - 8 units SQ ACHS Fluticasone Nasal [place] [Flonase Nasal [place]] 1 spray EA NOSTRIL BID amLODIPine [Norvasc] 10 mg PO DAILY Gabapentin [Neurontin] 100 mg PO TID metFORMIN HCL [Glucophage] 1,000 mg PO BID Rivaroxaban [Xarelto] 20 mg PO DAILY #0 Discontinued Rivaroxaban [Xarelto] 20 mg PO DAILY ALPRAZolam [Xanax] 1 mg PO TID PRN PRN Reason: Anxiety Atorvastatin [Lipitor] 10 mg PO HS Discharge Medication List Fluticasone Nasal [place] [Flonase Nasal [place]] 1 spray EA NOSTRIL BID 06/30/19 [History] Gabapentin [Neurontin] 100 mg PO TID 06/30/19 [History] Insulin Aspart [NovoLOG Flexpen] 4 - 8 units SQ ACHS 06/30/19 [History] Insulin Glargine [Lantus] 50 units SQ DAILY 06/30/19 [History] Losartan Potassium [Cozaar] 100 mg PO DAILY 06/30/19 [History] Omeprazole [PriLOSEC] 20 mg PO AC-BRKFST 06/30/19 [History] Spironolactone [Aldactone] 25 mg PO DAILY 06/30/19 [History] amLODIPine [Norvasc] 10 mg PO DAILY 06/30/19 [History] metFORMIN HCL [Glucophage] 1,000 mg PO BID 06/30/19 [History] Atorvastatin [Lipitor] 20 mg PO HS #3 tab 07/01/19 [Rx] Rivaroxaban [Xarelto] 20 mg PO DAILY #0 07/01/19 [Rx] Follow up Appointment(s)/Referral(s): Pradip Duncan MD [REFERRING] - 1 Week [facility] [Primary Care Provider] - 1-2 days Humberto Ley MD [STAFF PHYSICIAN] - 1 Week Activity/Diet/Wound Care/Special Instructions: Activity Limited until follow-up Follow-up with primary care provider upon discharge Continue current diet Follow-up with cardiology in one week May resume Xarelto starting Thursday Discharge Disposition: HOME SELF-CARE
[2019-07-01 14:30] VITALS: BP 140/75; PULSE 80; RESP 16; TEMP 98.6
[2019-07-01] MEDS ORDERED: RIVAROXABAN 20 MG TAB PO SCH (17:30)
== END 2019-07-01 16:40 | disposition home or self-care (01) | DRG 244 ==
LOC: EC 04:02 → UNDOADMIN 05:10 → 2SICU 05:10 → 3SCARD 11:12
PROVIDERS: ADMIT Hospitalist; ATTEND Hospitalist
PROC: 02HL3JZ Insertion of Pacemaker Lead into Left Ventricle, Percutaneous Approach (ICD-10-PCS; principal; 2019-06-30 06:35)
PROC: 0JH606Z Insertion of Pacemaker, Dual Chamber into Chest Subcutaneous Tissue and Fascia, Open Approach (ICD-10-PCS; principal; 2019-06-30 06:35)
PROC: 02H63JZ Insertion of Pacemaker Lead into Right Atrium, Percutaneous Approach (ICD-10-PCS; principal; 2019-06-30 06:35)
DX: I44.2 Atrioventricular block, complete (principal); E11.9 Type 2 diabetes mellitus without complications; E66.9 Obesity, unspecified; Z68.34 Body mass index [BMI] 34.0-34.9, adult; E78.5 Hyperlipidemia, unspecified; I10 Essential (primary) hypertension; I44.7 Left bundle-branch block, unspecified; I45.89 Other specified conduction disorders; I48.19 Other persistent atrial fibrillation; Z79.01 Long term (current) use of anticoagulants; Z79.4 Long term (current) use of insulin; Z79.899 Other long term (current) drug therapy; Z87.891 Personal history of nicotine dependence; Z88.8 Allergy status to other drugs, medicaments and biological substances; Z11.59 Encounter for screening for other viral diseases
CPT/HCPCS: 33208; 33210; 36415; 71045; 71046; 80053; 80061; 83605; 83735; 83880; 84100; 84443; 84484; 85025; 85610; 85730; 87635; 93005; 93306; 96361; 96374; 99291